=== PATIENT | female | born 1955 | race Caucasian/White ===

== ENCOUNTER 2023-07-19 11:51 | Outpatient (CLI) | payer OTHER, SELFPAY ==
[2023-07-19 17:26] LABS: Anion Gap 12 mmol/L (8-16); Blood Urea Nitrogen 17 mg/dL (7-17); Calcium 9.6 mg/dL (8.4-10.2); Carbon Dioxide 26 mmol/L (22-30); Chloride 102 mmol/L (98-107); Estimated Glomerular Filt Rate > 60; Glucose 111 mg/dL (65-110); HDL Direct 29 mg/dL; Potassium 4.3 mmol/L (3.4-5.0); Sodium 140 mmol/L (137-145)
[2023-07-19 17:37] LABS: LDL Cholesterol Direct 42 mg/dL
[2023-07-19 17:57] LABS: Thyroid Stimulating Hormone 0.323 uIU/mL (0.465-4.680)
[2023-07-19 18:50] LABS: Free T4 Free Thyroxine 1.42 ng/mL (0.78-2.19); Vitamin D 25 Hydroxy 39.7 ng/mL
== END 2023-07-19 11:52 | disposition home or self-care (01) ==
LOC: ANHWCLAB 11:52
PROVIDERS: PCP Family Medicine; Visit Provider Internal Medicine Endocrinology, Diabetes & Metabolism
DX: E03.9 Hypothyroidism, unspecified (principal); E11.9 Type 2 diabetes mellitus without complications; M85.80 Other specified disorders of bone density and structure, unspecified site; Z46.81 Encounter for fitting and adjustment of insulin pump; Z71.3 Dietary counseling and surveillance; Z78.0 Asymptomatic menopausal state; Z96.41 Presence of insulin pump (external) (internal)
CPT/HCPCS: 36415; 80048; 82306; 83718; 83721; 84439; 84443